=== PATIENT | male | born 1970 | race Two or more races ===

== ENCOUNTER 2023-02-17 01:58 | Emergency (ER) | payer MEDICAID, OTHER ==
[~2023-02-17] VITALS: Ht 152.4 cm; Wt 113.0 kg
[2023-02-17 03:15] VITALS: TEMP 97.7
[2023-02-17] MEDS ORDERED: LIDOCAINE 1% HCL (LOCAL ANESTH.) INJ 20ML MDV ID ONE (03:30)
[2023-02-17] MEDS ORDERED: TETANUS-DIPTH-ACEL PERTUSSIS 0.5ML SYR Tdap IM ONE (03:30)
[2023-02-17] MEDS ORDERED: ACETAMINOPHEN 500 MG TAB PO ONE (03:45)
[2023-02-17] MEDS ORDERED: AMOX500T86 PO (05:00)
[2023-02-17 06:00] VITALS: BP 168/89; PULSE 68; RESP 20; O2SAT 96
== END 2023-02-17 05:20 | disposition home or self-care (01) ==
LOC: ER 01:58
DX: S81.812A Laceration without foreign body, left lower leg, initial encounter (principal); G43.909 Migraine, unspecified, not intractable, without status migrainosus; Z98.890 Other specified postprocedural states; Z79.899 Other long term (current) drug therapy; W22.8XXA Striking against or struck by other objects, initial encounter; Y93.41 Activity, dancing; Y92.89 Other specified places as the place of occurrence of the external cause; Y99.8 Other external cause status
CPT/HCPCS: 12004; 73590; 90471; 90715; 99283; J2001